=== PATIENT | male | born 1970 | race African-American/Black ===

== ENCOUNTER 2016-10-13 19:38 | Emergency (ER) | payer OTHER ==
--- NOTE | ~2016-10-13 | CT2 ---
[facility] A Service [facility] RADIOLOGY TEXT RESULTS PATIENT: ZANDRA WISE LOCATION: SED : 72 UNIT #: [id number] AGE: [address]: Arias Ryder MD SEX: M ORDER DR: [id number] [address] [address] [id number] E MR#: [id number] Acc #: [id number] NAME: ZANDRA WISE. : 1970 SEX: M STUDY DATE/TIME: 10/13/2016 23:44 UNIT: SED ROOM: STUDY DESCRIPTION: CT Abd and Pelv W Cont Attending Physician: Arias Rdyer M.D. Ordering Physician: Arias Ryder M.D. MEDICAL IMAGING REPORT This report is preliminary unless electronic signature is present. EXAM CT abdomen and pelvis with contrast INDICATIONS None. TECHNIQUE Dizziness whole body aches for 2 weeks and abdomen pain. COMPARISON 01/27/2016. TECHNIQUE Patient was given 100 cc of Isovue-370 and 5 mm images were obtained through the abdomen and pelvis. Oral contrast was also administered. This CT exam was performed with one or more of the following radiation dose reduction techniques: automatic exposure control, adjustment of mA and/or kV according to patient size, and iterative reconstruction. FINDINGS The lung bases are clear. Diffuse fatty change of the liver. There are no focal lesions. The gallbladder, spleen, pancreas, adrenal glands and right kidney is normal. There is a 3 cm cyst in the left kidney. Left knee is otherwise normal. The aorta is normal in size. There is no adenopathy. The appendix and bowel appear normal. The bladder and prostate gland are normal. Bones are unremarkable. IMPRESSION 1. Diffuse fatty change of the liver. 2. Normal appendix. [facility] A Service [facility] RADIOLOGY TEXT RESULTS PATIENT: ZANDRA WISE LOCATION: SED : 71 UNIT #: [id number] AGE: [address]: Arias Ryder MD SEX: M ORDER DR: 3. Otherwise normal. Dictated by... Ronni Bustamante M.D. THIS IS AN ELECTRONICALLY VERIFIED REPORT Ronni Bustamante M.D. at 10/14/2016 1:58 AM FEL/pcl TD: 10/14/2016 01:00 JOB #: [id number] MEDICAL IMAGING REPORT Page 1 of 1
--- NOTE | ~2016-10-13 | CR63 ---
[facility]. [facility] A Service of [facility] RADIOLOGY TEXT RESULTS PATIENT: AZNDRA WISE LOCATION: SED : 71 UNIT #: [id number] AGE: [address]: Arias Ryder MD SEX: M ORDER DR: [id number] [place] [id number] E MR#: [id number] Acc #: [id number] NAME: ZANDRA WISE : 1970 SEX: M STUDY DATE/TIME: 10/13/2016 20:01 UNIT: SED ROOM: STUDY DESCRIPTION: CR Chest 2 View Attending Physician: Arias Ryder M.D. Ordering Physician: Arias Ryder M.D. Primary Care Physician: No Primary Care Physician MEDICAL IMAGING REPORT This report is preliminary unless electronic signature is present. EXAM PA and lateral chest radiograph. DATE OF EXAM 10/13/2016 INDICATION Body aches, cough and abdominal pain for 2 weeks. COMPARISON Comparison is made to prior study from January 27, 2016. FINDINGS Heart size is within normal limits. There is some mild elevation of the right hemidiaphragm with some associated bronchovascular crowding, not significantly changed when compared to the prior study. No pneumothorax, pleural effusion or acute infiltrate is seen. IMPRESSION No acute disease. Dictated by... Hanna Fitzpatrick M.D. THIS IS AN ELECTRONICALLY VERIFIED REPORT Hanna Fitzpatrick M.D. at 10/14/2016 10:34 AM AFF/jt [facility] A Service of [facility] RADIOLOGY TEXT RESULTS PATIENT: ZANDRA WISE LOCATION: SED : 71 UNIT #: [id number] AGE: [address]: Arias Ryder MD SEX: M ORDER DR: TD: 10/13/2016 20:47 JOB #: [id number] MEDICAL IMAGING REPORT Page 1 of 1
[~2016-10-13 19:38] MED LIST: AMOXICILLIN PO; AMOXICILLIN500 M1; AMOXICILLIN500 M1 PO; ASPIRIN81 MG PO; BROMFED DM COU118 ML PO; CIPRO750 MG PO; CLONIDINE HCL0.1 MG PO; COLCRYS0.6 MG PO; COREG3.125 MG; FLEXERIL10 MG PO; FLOMAX PO; FLOMAX0.4 M1 PO; HYDROCHLOROTHIA25 MG PO; IBUPROFEN PO; IBUPROFEN800 MG PO; INDOMETHACIN50 MG PO; KEFLEX PO; LEVOFLOXACIN PO; LISINOPRIL10 MG; LISINOPRIL20 MG PO; LISINOPRIL5 MG PO; LORTAB 7.5-3251 EACH PO; METFORMIN HCL500 M1; NEURONTIN300 MG PO; NO MEDICATIONS; NORVASC10 MG PO; OMEPRAZOLE40 MG PO; PERCOCET PO; PERCOCET5/325 PO; PHENERGAN25 M1 PO; PREDNISONE PO; PREDNISONE10 MG PO; PRILOSEC; ROBAXIN500 MG PO; TUSSIONEX PENN473 ML PO; TYLOX 5-500 CA1 EACH PO; VICODIN 5/1 TAB 5/50 PO; VOLTAREN75 MG PO; ZOFRAN ODT PO; ZYRTEC-D T1 TAB.SR . PO; ZYRTEC10 M1 PO
[2016-10-13 19:59] LABS: URINE SOURCE CLEAN CATCH
[2016-10-13 20:02] LABS: BASOPHIL% 0.4 % (0-2.5); EOSINOPHIL# 0.1 X10e3 (0-0.7); EOSINOPHIL% 1.7 % (0.0-7.0); HEMATOCRIT 45.4 % (38.0-50.0); HEMOGLOBIN 15.4 gm/dL (13.0-16.0); LYMPHOCYTE# 0.9 X10e3 (1.0-3.5); LYMPHOCYTE% 12.2 % (17.0-45.0); MEAN CELL VOLUME 88.2 FL (83-96); MONOCYTE# 0.5 X10e3 (0-1.0); MONOCYTE% 6.4 % (3.0-12.0); NEUTROPHIL# 5.8 X10e3 (1.5-7.1); NEUTROPHIL% 79.3 % (40-75); PLATELET COUNT 239 X10e3 (140-420); RED BLOOD COUNT 5.15 X10e (3.90-5.60); RED CELL DISTRIBUTION WIDTH 13.8 % (11.0-15.5); URINE APPEARANCE CLEAR; URINE BILIRUBIN NEG (NEG); URINE BLOOD TRACE-LYSED (NEG); URINE COLOR YELLOW; URINE GLUCOSE NEG (NORM); URINE KETONE NEG (NEG); URINE LEUKOCYTE ESTERASE NEG (NEG); URINE NITRATE NEG (NEG); URINE PROTEIN NEG (NEG); URINE SPECIFIC GRAVITY 1.025 (1.003-1.035); URINE UROBILINOGEN 0.2 MG/DL (NORM); WHITE BLOOD COUNT 7.4 X10e3 (4.0-10.5)
[2016-10-13 20:03] LABS: MICRO INDICATED? YES
[2016-10-13 20:04] LABS: CULTURE INDICATED? NO; DIFF IND NO; URINE BACTERIA NEG (NEG); URINE SQUAMOUS EPITHELIAL CELL FEW /[HPF]; URINE WBC NEG /[HPF] (0-5)
[2016-10-13 20:08] LABS: INFLUENZA A NEG (NEG); INFLUENZA B NEG (NEG)
[2016-10-13 20:17] LABS: ALBUMIN SERUM 4.1 g/dL (3.5-5.0); BILIRUBIN, DIRECT 0.2 mg/dL (0.0-0.2); BILIRUBIN,INDIRECT 0.5 mg/dL (0.0-0.9); BILIRUBIN,TOTAL 0.7 mg/dL (0.2-2.0); BUN/CREATININE RATIO 11.81; CALCIUM SERUM 9.7 mg/dL (8.4-10.2); CREATININE SERUM 1.1 mg/dL (0.6-1.4); GLOM FILT RATE Estimated 93.5 mL/min (>60); POTASSIUM 3.7 mmol/L (3.5-5.1)
== END 2016-10-14 00:46 | disposition home or self-care (01) ==
LOC: SED 19:38
PROVIDERS: Emergency Medicine
DX: R10.13 Epigastric pain (principal); R50.9 Fever, unspecified; R19.7 Diarrhea, unspecified; M79.1 Myalgia; E11.9 Type 2 diabetes mellitus without complications; I10 Essential (primary) hypertension; K21.9 Gastro-esophageal reflux disease without esophagitis; Z87.442 Personal history of urinary calculi
CPT/HCPCS: 36415; 71020; 74177; 80048; 80076; 81003; 82150; 82947; 83605; 83690; 85025; 86308; 87040; 87651; 87804; 96361; 96374; 96375; 99284; C9113; J2270; J2405; J2550; Q9967

== ENCOUNTER 2017-03-13 16:04 | Emergency (ER) | payer OTHER ==
[~2017-03-13] VITALS: Ht 188 cm; Wt 127.0 kg
--- NOTE | ~2017-03-13 | EKG ---
PATIENT: ZANDRA WISE UNIT #: [id number] Ventricular Rate: 90 BPM Atrial Rate: 90 BPM P-R Interval: 150 ms QRS Duration: 76 ms Q-T Interval: 342 ms QTC Calculation(Bezet): 418 ms P [place]: 53 degrees Calculated R [place]: 31 degrees Calculated T [place]: 11 degrees Diagnosis Line: Normal sinus rhythm Diagnosis Line: Normal ECG Diagnosis Line: When compared with ECG of 27-JAN-2016 20:49, Diagnosis Line: No significant change was found Diagnosis Line: Confirmed by OLIVIA MALLORY MD ([id number]) on Diagnosis Line: 03/16/2017 11:18:29 AM INTERPRETING MD: SHAWNEE PEAÑLOZA
--- NOTE | ~2017-03-13 | CR72 ---
[facility]. [facility] A Service of [facility] RADIOLOGY TEXT RESULTS PATIENT: ZANDRA WISE LOCATION: SED : 71 UNIT #: [id number] AGE: [address]: Mayte Sethi MD SEX: M ORDER DR: [id number] [place] [id number] E MR#: [id number] Acc #: [id number] NAME: ZANDRA WISE. : 1970 SEX: M STUDY DATE/TIME: 03/13/2017 17:43 UNIT: SED ROOM: STUDY DESCRIPTION: CR Chest Single View Portable Attending Physician: Mayte Sethi M.D. Ordering Physician: Mayte Sethi M.D. Primary Care Physician: Primary Care Physician No MEDICAL IMAGING REPORT This report is preliminary unless electronic signature is present. EXAM Portable chest HISTORY Right-sided chest pain since last night. COMPARISON 10/13/2016 FINDINGS A single AP portable view of the chest shows both lungs to be clear. The heart is normal in size. The mediastinal contour is normal. No significant bone abnormalities are seen. IMPRESSION Normal portable chest. Dictated by... Ian Burnette M.D. THIS IS AN ELECTRONICALLY VERIFIED REPORT Ian Burnette M.D. at 03/15/2017 3:15 PM GAVI/wang TD: 03/14/2017 10:49 JOB #: [id number] MEDICAL IMAGING REPORT Page 1 of 1
[2017-03-13 16:33] LABS: BASOPHIL# 0.1 X10e3 (0-0.3); BASOPHIL% 1.2 % (0-2.5); EOSINOPHIL# 0.3 X10e3 (0-0.7); EOSINOPHIL% 2.9 % (0.0-7.0); HEMATOCRIT 45.9 % (38.0-50.0); HEMOGLOBIN 15.4 gm/dL (13.0-16.0); LYMPHOCYTE# 3.3 X10e3 (1.0-3.5); MEAN CELL VOLUME 87.8 FL (83-96); MEAN CORPUSCULAR HEMOGLOBIN 29.5 PG (28-34); MEAN CORPUSCULAR HGB CONC 33.6 g/dL (30-36); MEAN PLATELET VOLUME 8.6 FL (6.5-11.5); MONOCYTE# 0.9 X10e3 (0-1.0); MONOCYTE% 8.3 % (3.0-12.0); NEUTROPHIL# 6.7 X10e3 (1.5-7.1); NEUTROPHIL% 58.6 % (40-75); PLATELET COUNT 315 X10e3 (140-420); RED BLOOD COUNT 5.22 X10e (3.90-5.60); RED CELL DISTRIBUTION WIDTH 13.9 % (11.0-15.5); WHITE BLOOD COUNT 11.4 X10e3 (4.0-10.5)
[2017-03-13 16:34] LABS: DIFF IND NO
[2017-03-13 16:58] LABS: ALBUMIN SERUM 4.7 g/dL (3.5-5.0); ALKALINE PHOSPHATASE 51 U/L (32-92); ALT (SGPT) 34 U/L (10-40); AST (SGOT) 27 U/L (10-42); BILIRUBIN, DIRECT 0.2 mg/dL (0.0-0.2); BILIRUBIN,INDIRECT 0.9 mg/dL (0.0-0.9); BILIRUBIN,TOTAL 1.1 mg/dL (0.2-2.0); BLOOD UREA NITROGEN 28 mg/dL (9-23); BUN/CREATININE RATIO 5.95; CALCIUM SERUM 9.6 mg/dL (8.4-10.2); CARBON DIOXIDE 24 mmol/L (22-31); CHLORIDE 101 mmol/L (100-111); CREATININE SERUM 4.7 mg/dL (0.6-1.4); GLOM FILT RATE Estimated 16.1 mL/min (>60); GLUCOSE FASTING 146 mg/dL (70-110); LIPASE 29 U/L (22-51); MAGNESIUM 1.6 mg/dL (1.6-3.0); POTASSIUM 3.7 mmol/L (3.5-5.1); SODIUM 139 mmol/L (135-145)
[2017-03-13 17:00] LABS: ALCOHOL BLOOD <5 mg/dL ([, 0])
[2017-03-13 17:03] LABS: INR 1.2; PARTIAL THROMBOPLASTIN TIME 25.3 SECONDS (23.5-31.3); PROTHROMBIN TIME (PATIENT) 12.6 SECONDS (10.0-11.7)
[2017-03-13 17:38] LABS: URINE SOURCE CLEAN CATCH
[2017-03-13 17:40] LABS: MICRO INDICATED? YES; URINE APPEARANCE HAZY; URINE BILIRUBIN NEG (NEG); URINE BLOOD 3+ (NEG); URINE COLOR DK YELLOW; URINE GLUCOSE NEG (NORM); URINE KETONE NEG (NEG); URINE LEUKOCYTE ESTERASE TRACE (NEG); URINE NITRATE NEG (NEG); URINE PH 5.5 (5-8); URINE PROTEIN 1+ (NEG); URINE SPECIFIC GRAVITY >=1.030 (1.003-1.035); URINE UROBILINOGEN 0.2 MG/DL (NORM)
[2017-03-13 17:43] LABS: CULTURE INDICATED? YES; URINE BACTERIA 1+ (NEG); URINE RBC 25-50 /[HPF] (0-2); URINE SQUAMOUS EPITHELIAL CELL OCCAS /[HPF]; URINE WBC 50-100 /[HPF] (0-5)
[2017-03-13 17:44] LABS: URINE AMORPHOUS SEDIMENT AMORP URATES; URINE MUCUS PRESENT
[2017-03-13 17:54] LABS: AMPHETAMINE NEG (NEG); BARBITURATES NEG (NEG); BENZODIAZEPINES NEG (NEG); COCAINE NEG (NEG); MARIJUANA NEG (NEG); OPIATES NEG (NEG); TRICYCLIC ANTIDEPRESSANTS NEG (NEG); U METHADONE NEG (NEG)
[2017-03-14 17:07] LABS: POC - CKMB 6.8 ng/mL (0.0-7.9); POC - MYOGLOBIN >500.0 ng/mL (0.0-169.0); POC - TROPONIN <0.05 ng/mL (<=0.05)
[2017-03-14 17:09] LABS: POC - CKMB 3.7 ng/mL (0.0-7.9)
[2017-03-14 17:10] LABS: POC - TROPONIN <0.05 ng/mL (<=0.05)
== END 2017-03-13 22:06 ==
LOC: SED 16:04
PROVIDERS: Student in an Organized Health Care Education/Training Program
DX: K29.70 Gastritis, unspecified, without bleeding (principal); B96.81 Helicobacter pylori [H. pylori] as the cause of diseases classified elsewhere; N17.9 Acute kidney failure, unspecified; E11.9 Type 2 diabetes mellitus without complications; I10 Essential (primary) hypertension; Z79.899 Other long term (current) drug therapy; Z79.82 Long term (current) use of aspirin
CPT/HCPCS: 36415; 71010; 80048; 80076; 80307; 81003; 82550; 82553; 82947; 83690; 83735; 83874; 83880; 84484; 85025; 85610; 85730; 86677; 87086; 93005; 96361; 96374; 96375; 99285; C9113; G0480; J0696; J2270; J2405